=== PATIENT | female | born 2000 | race Caucasian/White ===

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

== ENCOUNTER 2021-02-05 17:45 | Emergency (ER) | payer OTHER, SELFPAY ==
[2021-02-05 17:48] VITALS: BP 127/68; PULSE 74; RESP 16; TEMP 36.9; O2SAT 100
--- NOTE | 2021-02-05 18:24 | ED.SKABFB ---
HPI - Skin/Abscess/Foreign Bdy General Chief complaint: Skin/Abscess/Foreign Body Stated complaint: rash Time Seen by Provider: 02/05/21 18:10 Source: patient and RN notes reviewed Mode of arrival: ambulatory Limitations: no limitations History of Present Illness HPI narrative: 21-year-old female presents concern for 2-day history of generalized pink rash. Reports the rash is burning. Denies current itching. She reports she began having a bad sore throat this morning. She denies any lip swelling, tongue swelling, trouble breathing, fever, vomiting, diarrhea. Denies any new medications, personal care products, home care products. Reports history of rash after sun exposure. Reports she was recently in the sun. Denies sunburn. MD complaint: rash and other (Sore throat) Related Data Home Medications Medication Instructions Recorded Confirmed methylphenidate HCl 02/05/21 methylphenidate HCl mg PO 02/05/21 norgestimate-ethinyl estradiol tablet 02/05/21 [[place]-[facility]] norgestimate-ethinyl estradiol tablet 02/05/21 [Sprintec (28)] Allergies Allergy/AdvReac Type Severity Reaction Status Date / Time No Known Drug Allergies Allergy Unknown Verified 09/28/15 09:53 Review of Systems Review of Systems: CONSTITUTIONAL: Denies malaise, chills, sweats, or fever. EYES: Denies visual changes, redness, or discharge. ENT: Denies rhinorrhea, congestion, sinus pain, otalgia, swollen lips, swollen tongue. Reports sore throat. CARDIOVASCULAR: Denies chest pain, palpitations, or edema. RESPIRATORY: Denies cough or dyspnea. GASTROINTESTINAL: Denies abdominal pain, nausea, vomiting SKIN: Reports generalized rash MUSCULOSKELETAL: Denies myalgia. NEUROLOGIC: Denies headache. All systems reviewed & are unremarkable except as noted in HPI and below PMFSH Comments At time of signature, agree with nursing past medical, surgical, social and family history. There is no relevant family history pertinent to the presenting complaint Exam Narrative: GENERAL: Well-appearing, well-nourished, and in no acute distress. HEAD: Normocephalic, atraumatic. EYES: PERRLA, conjunctivae clear ENT: Mucous membranes moist. Oropharynx without edema, erythema or lesions. NECK: Supple. No lymphadenopathy CHEST: Clear to auscultation. No respiratory distress. HEART: Regular rate and rhythm. SKIN: Warm, dry. Generalized pink papular rash noted to the torso, bilateral arms and legs NEURO: Alert and oriented x3. PSYCH: Normal mood and affect Course Course Emergency Course: Patient is aware of diagnosis, understands and agrees to treatment plan. Anticipatory guidance given. Patient agrees to follow-up as directed and is aware of reasons to seek care at the emergency department. Portions of this record may have been created with voice recognition software Vital Signs Vital signs: Vital Signs Temperature 98.4 F 02/05/21 17:48 Pulse Rate 74 02/05/21 17:48 Respiratory Rate 16 02/05/21 17:48 Blood Pressure 127/68 02/05/21 17:48 Pulse Oximetry 100 02/05/21 17:48 Temperature 98.4 F 02/05/21 17:48 Pulse Rate 74 02/05/21 17:48 Respiratory Rate 16 02/05/21 17:48 Blood Pressure 127/68 02/05/21 17:48 Pulse Oximetry 100 02/05/21 17:48 Reviewed. MDM - Skin/Abscess/Foreign Bdy MDM Narrative Medical decision making narrative: Does not appear at this time to be erythema multiforme, bullous, SJS, TEN; no evidence at this time to suggest RMSF, endocarditis or Lyme disease; patient looks well, nontoxic and is tolerating oral intake; no neurologic signs or symptoms; no headache, photophobia or neck pain; afebrile; appropriate for initial outpatient treatment; discussed the importance of follow-up, patient agrees; question, viral exanthema, contact dermatitis, allergic dermatitis, eczema, urticaria, strep throat. No soft palate or uvula edema, no tongue, lip edema or other mucosal involvement, no respiratory compromise, no stridor
== END 2021-02-05 18:32 | disposition home or self-care (01) ==
PROVIDERS: Emergency Provider Nurse Practitioner; PCP Family Medicine
DX: R21 Rash and other nonspecific skin eruption (principal)
CPT/HCPCS: 87081; 87880; 99213; G0463

== ENCOUNTER 2022-01-13 14:21 | Emergency (ER) | payer OTHER, SELFPAY ==
[2022-01-13 14:32] VITALS: BP 126/85; PULSE 77; RESP 16; TEMP 37.4; O2SAT 100
--- NOTE | 2022-01-13 14:49 | ED.ABDPAIN ---
HPI - Abdominal Pain General Chief Complaint: Abdominal Pain Stated Complaint: right side pain Time Seen by Provider: 01/13/22 14:34 Source: patient and family Mode of arrival: ambulatory Limitations: no limitations History of Present Illness HPI narrative: Patient presents today complaining of right lower quadrant abdominal pain x3 days. Denies any additional symptoms to include nausea, vomiting, diarrhea, constipation, urinary symptoms, fever. She currently rates her pain 6/10 and has been taking Tylenol and Midol without relief. States she has been lying in a position with a heating pad for the last 3 days due to severe pain. States she took a Plan B pill on November 20, but has also taken several tests to confirm that she is not . Her last test was yesterday and it was negative. She did have a period in November, but has not yet had a period in December. States she believes her right ovary is what is causing her pain as she does have a history of ovarian cysts. She does still have her appendix. Related Data Home Medications Medication Instructions Recorded Confirmed methylphenidate HCl 10 mg tablet 02/05/21 methylphenidate HCl 20 mg biphasic mg PO 02/05/21 30-70 capsule,extended release norgestimate 0.25 mg-ethinyl tablet 02/05/21 estradiol 35 mcg tablet ([place]-[facility]) norgestimate 0.25 mg-ethinyl tablet 02/05/21 estradiol 35 mcg tablet (Sprintec (28)) Allergies Allergy/AdvReac Type Severity Reaction Status Date / Time No Known Drug Allergies Allergy Unknown Verified 09/28/15 09:53 Review of Systems Review of Systems: CONSTITUTIONAL: Denies body aches, fever, chills, or sweats. EYES: Denies visual changes, redness, or discharge. ENT: Denies rhinorrhea, congestion, sore throat, or otalgia. CARDIOVASCULAR: Denies chest pain, palpitations, or edema. RESPIRATORY: Denies cough or dyspnea. GASTROINTESTINAL: Denies nausea, vomiting, or diarrhea.+ Abdominal pain GENITOURINARY: Denies dysuria or hematuria. SKIN: Denies rash, itching, or wounds. MUSCULOSKELETAL: Denies back pain, joint pain, or myalgia. NEUROLOGIC: Denies headache, numbness, tingling, or weakness. PSYCH: Denies depression or anxiety. PMFSH Comments At time of signature, I have reviewed and agree with nursing past medical, surgical, social and family history unless otherwise noted. Please see nursing chart for further information. There is no relevant family history pertinent to the presenting complaint Exam Narrative: GENERAL: Well-appearing, well-nourished, and in no acute distress. HEAD: Normocephalic, atraumatic. EYES: EOMI. No redness or drainage. Conjunctivae normal. ENT: Mucous membranes pink and moist. NECK: Normal AROM. CHEST: No respiratory distress. Clear to auscultation. HEART: Regular rate and rhythm. No murmur appreciated. ABDOMEN: Soft, nondistended, normal active bowel sounds.+ Right lower quadrant abdominal tenderness with guarding.-Rebound EXTREMITIES: Normal range of motion. No edema. SKIN: Warm, dry, no rash. Capillary refill normal. Normal skin turgor. NEURO: No focal deficits. Alert and oriented x3. Gait steady. PSYCH: Normal affect. No signs of depression or anxiety. Course Course Level of Care: Express Care Visit Vital Signs Vital signs: Vital Signs Temperature 99.3 F 01/13/22 14:32 Pulse Rate 77 01/13/22 14:32 Respiratory Rate 16 01/13/22 14:32 Blood Pressure 126/85 01/13/22 14:32 Pulse Oximetry 100 01/13/22 14:32 Oxygen Delivery Room Air 01/13/22 14:32 Temperature 99.3 F 01/13/22 14:32 Pulse Rate 77 01/13/22 14:32 Respiratory Rate 16 01/13/22 14:32 Blood Pressure 126/85 01/13/22 14:32 Pulse Oximetry 100 01/13/22 14:32 Oxygen Delivery Room Air 01/13/22 14:32 Reviewed Transfer Transfered to: [place] Transportation: Other (Private vehicle) Transfer rationale: Higher level of care, right lower quadrant abdominal loki
== END 2022-01-13 14:51 | disposition short-term general hospital (02) ==
PROVIDERS: Emergency Provider Nurse Practitioner; PCP Family Medicine
DX: R10.31 Right lower quadrant pain (principal); F90.9 Attention-deficit hyperactivity disorder, unspecified type
CPT/HCPCS: 99212; G0463

== ENCOUNTER 2022-01-13 15:17 | Emergency (ER) | payer OTHER, SELFPAY ==
--- NOTE | ~2022-01-13 | CT_ITS ---
EXAMINATION: CT abdomen pelvis w con DATE: 01/13/2022 17:09 INDICATION: RLQ abd pain TECHNIQUE: Computed tomography (CT) of the abdomen and pelvis was performed with 100 mL Omnipaque-300 intravenous contrast. Automated exposure control and iterative reconstruction technique were employe d. The dose-length product was 446.18 mGy-cm. COMPARISON: 06/13/2012. FINDINGS: Lower thorax: Unremarkable Liver: Normal. Biliary/Gallbladder: Gallbladder is normal. No bile duct dilation. Pancreas: No mass or duct dilation. Spleen: Normal. Adrenals:1 cm enhancing nodularity in the superior aspect of the left adrenal. Normal right adrenal. Kidneys: No mass, stone, or hydronephrosis. GI tract: No small or large bowel dilation. Normal appendix. Mesentery/Peritoneum: No ascites, mass, or free air. Retroperitoneum: No mass. Pelvis: Mild bladder wall thickening, given the degree of distention, otherwise the pelvic organs are within normal limits. Soft Tissues: Soft tissues and body wall unremarkable. Bones: No acute osseous finding. IMPRESSION: No CT evidence for appendicitis. Mild bladder wall thickening as can be seen with cystitis in the ricardo ropriate clinical context. No other acute abdominopelvic process detected. Possible 1 cm left adrenal nodule, recommend outpatient MR abdomen with adrenal mass protocol for further evaluation. Reviewed, dictated and finalized at location K. IMPRESSION: No CT evidence for appendicitis. Mild bladder wall thickening as can be seen wi th cystitis in the appropriate clinical context. No other acute abdominopelvic process detected. Possible 1 cm left adrenal nodule, recommend outpatient MR ab domen with adrenal mass protocol for further evaluation.
--- NOTE | ~2022-01-13 | US_ITS ---
EXAMINATION: US pelvic complete w TV DATE: 01/13/2022 19:45 INDICATION: RLQ abd pain TECHNIQUE: Multiple transabdominal and endovaginal sonographic images of the pelvis were obtained. COMPARISON: CT abd/pel, same date. FINDINGS: Uterus: 7.0 x 3.4 x 4.3 cm. Homogenous parenchyma. Endometrial complex measures 0.7 cm. Right Ovary: 4.2 x 1.9 x 2.0 cm. Vascular flow is present. 1.3 cm simple cyst/follicle. Left Ovary: 4.8 x 2.0 x 2.1 cm. Vascular flow is present. There is small volume free fluid in the pelvis, within physiologic range. IMPRESSION: 1. Unremarkable pelvic sonogram findings. Reviewed, dictated and finalized at location K.
[2022-01-13 15:21] VITALS: BP 120/71; PULSE 63; RESP 14; TEMP 36.5; O2SAT 100
[2022-01-13 15:39] LABS: Basophils Percent Auto 0.3 % (0.2-1.2); Eosinophils Percent Auto 0.3 % (0-4.4); Hematocrit 42.9 % (37.0-47.0); Hemoglobin 13.7 g/dL (12.0-15.0); Immature Granulocyte Absolute 0.02 K/mm3 (0.00-0.031); Immature Granulocyte Percent A 0.3 % (0-0.5); Lymphocytes Absolute Auto 2.12 K/mm3 (0.9-3.2); Lymphocytes Percent Auto 30.1 % (18.3-44.2); Mean Corpuscular HGB Conc 31.9 g/dl (32-36); Mean Corpuscular Hemoglobin 30.2 pg (26-34); Mean Corpuscular Volume 94.5 fl (80-100); Mean Platelet Volume 12.2 fl (7.4-10.4); Monocytes Absolute Auto 0.4 K/mm3 (0.1-0.6); Monocytes Percent Auto 5.4 % (2.6-8.5); Neutrophils Absolute Auto 4.5 K/mm3 (1.3-6.7); Neutrophils Percent Auto 63.6 % (45.5-73.1); Platelet Count Result 150 k/mm3 (150-375); Red Blood Count 4.54 M/mm3 (4.2-5.4); Red Cell Distribution Width 12.6 % (11.5-14.5); White Blood Count 7.1 K/mm3 (4.5-10.0)
[2022-01-13 15:50] LABS: Alanine Aminotransferase 23 U/L (6-35); Alkaline Phosphatase 59 U/L (38-126); Anion Gap 9 mmol/L (8-16); Aspartate Amino Transferase 24 U/L (14-36); Bilirubin,Total 0.3 mg/dL (0.2-1.3); Blood Urea Nitrogen 10 mg/dL (7-17); Calcium 9.9 mg/dL (8.4-10.2); Carbon Dioxide 29 mmol/L (22-30); Chloride 102 mmol/L (98-107); Estimated CRCL calculation 75 ml/min; Estimated Glomerular Filt Rate > 60; Glucose 91 mg/dL (65-110); Lipase 34 U/L (23-300); Potassium 3.9 mmol/L (3.4-5.0); Sodium 140 mmol/L (137-145)
[2022-01-13 16:01] LABS: Appearance Urine Clear (Clear); Bilirubin Urine Negative (Negative); Blood Urine Negative (Negative); Color Urine Yellow (Yellow); Glucose Urine UA Negative (Negative); Ketones Urine Negative (Negative); Leukocyte Esterase Ur Negative LEU/UL (Negative); Nitrate Urine Negative (Negative); Protein Urine Negative (Negative); Urobilinogen Urine 0.2 mg/dL (<2.0)
[2022-01-13 16:03] LABS: Add Urine Microscopic? NO
[2022-01-13] MEDS: KETOROLAC 30 MG/ML VIAL (*BKC) IV PUSH (16:40)
[2022-01-13] MEDS: SODIUM CHLORIDE 0.9% IV 1,000 ML 999 ML IV CONT (16:40)
[2022-01-13] MEDS: ONDANSETRON INJ 4 MG/2 ML VIAL IV PUSH (16:41)
--- NOTE | 2022-01-13 17:51 | ED.ABDPAIN ---
HPI - Abdominal Pain General Chief Complaint: Abdominal Pain <Sanjay Calle DO - Last Filed: 01/14/22 08:13> Stated Complaint: Abdominal Pain <Sanjay Calle DO - Last Filed: 01/14/22 08:13> Time Seen by Provider: 01/13/22 15:38 <Sanjay Calle DO - Last Filed: 01/14/22 08:13> Source: RN notes reviewed <Sanjay Calle DO - Last Filed: 01/14/22 08:13> History of Present Illness HPI narrative: Patient presents emergency department from home for abdominal pain. Patient states pain is located in the right lower quadrant does not radiate described as sharp and stabbing. Patient states the pain began 3 days ago. Is associated with nausea and vomiting she denies any fevers or chills chest pain shortness of breath diarrhea or any other symptoms states she did has been taking Tylenol for the pain with minimal relief the patient gone to urgent care and was referred to the ER for rule out appendicitis <Sanjay Calle DO Last Filed: 01/14/22 08:13> Related Data Home Medications: Home Medications Medication Instructions Recorded Confirmed methylphenidate HCl 20 mg biphasic 20 mg PO DAILY 02/05/21 01/13/22 30-70 capsule,extended release <Sanjay Calle DO - Last Filed: 01/14/22 08:13> Allergies/Adverse Reactions: Allergies Allergy/AdvReac Type Severity Reaction Status Date / Time No Known Drug Allergies Allergy Unknown Unknown Verified 01/13/22 15:23 <Sanjay Calle DO - Last Filed: 01/14/22 08:13> Review of Systems Review of Systems: Gen.: Denies fevers or chills ENT: Denies congestion Respiratory: Denies shortness of breath or cough CV: Denies chest pain or palpitations GI: See HPI Musculoskeletal: Denies back pain or muscle pain Neuro: Denies numbness, tingling, weakness or focal weakness Skin: Denies rash Except as documented, all other systems reviewed and negative <Sanjay Calle DO - Last Filed: 01/14/22 08:13> [facility] Past Medical History Medical History: Medical History (Updated 01/14/22 @ 00:00 by Background Daemon) Patient denies significant medical history <Sanjay Calle DO - Last Filed: 01/14/22 08:13> Social History Social History: Social History (Updated 01/13/22 @ 17:52 by Sanjay Calle DO) Tobacco type: e-cigarettes/vaping <Sanjay Calle DO - Last Filed: 01/14/22 08:13> Exam Narrative: APPEARANCE: No acute distress, nontoxic, resting in bed HEENT: Normocephalic, atraumatic, OMM RESPIRATORY: No respiratory distress, clear to auscultation bilaterally with no rhonchi wheezing or rales CARDIOVASCULAR: RRR s murmur ABDOMINAL: Soft nondistended tender palpation right lower quadrant no tenderness right upper quadrant, left upper quadrant left lower quadrant no rebound or guarding Pelvic: Normal external exam, small amount of white discharge in vaginal canal cervix closed, right adnexal tenderness no left adnexal tenderness no cervical motion tenderness MUSCULOSKELETAl: Moves all extremities. No clubbing, cyanosis or edema. NEURO: Awake and alert. Following commands, speech normal, no focal deficits SKIN:: Warm, dry. Normal Color PSYCHIATRIC: Normal affect/mood <Sanjay Calle DO - Last Filed: 01/14/22 08:13> Course Reevaluation(s) Reevaluation #1: I discussed with patient US unremarkable other than simple right ovary cyst. No torsion. She denies any other questions or concerns. Trichomonas negative as well. <Vy Ricardo MD - Last Filed: 01/14/22 03:32> Date: 01/13/22 <Vy Ricardo MD - Last Filed: 01/14/22 03:32> Time: 20:20 <Vy Ricardo MD - Last Filed: 01/14/22 03:32> Vital Signs Vital signs: Vital Signs Temperature 97.7 F 01/13/22 15:21 Pulse Rate 63 01/13/22 15:21 Respiratory Rate 14 01/13/22 15:21 Blood Pressure 120/71 01/13/22 15:21 Pulse Oximetry 100 01/13/22 15:21 Oxygen Delivery Room Air 01/13/22 15:21 Temp
[2022-01-13 20:26] VITALS: BP 130/74; PULSE 86; RESP 16; O2SAT 99
== END 2022-01-13 20:27 | disposition home or self-care (01) ==
PROVIDERS: Emergency Provider Emergency Medicine; PCP Family Medicine
DX: R10.31 Right lower quadrant pain (principal); F17.290 Nicotine dependence, other tobacco product, uncomplicated
CPT/HCPCS: 36415; 74177; 76830; 76856; 80053; 81003; 81025; 83690; 85025; 87070; 87491; 87591; 87808; 96361; 96374; 96375; 99284; J1885; J2405; J7030; Q9967

== ENCOUNTER 2023-06-10 12:55 | Emergency (ER) | payer OTHER, SELFPAY ==
--- NOTE | ~2023-06-10 | CT_ITS ---
EXAMINATION: CT abdomen pelvis w con DATE: 06/10/2023 15:50 INDICATION: Left upper quadrant abdominal pain. Constipation. TECHNIQUE: Computed tomography (CT) of the abdomen and pelvis was performed with 100 mL Omnipaque 350 intravenous contrast. Automated exposure control and iterative reconstruction technique were employe d. The dose-length product was 750.93 mGy-cm. COMPARISON: CT abdomen and pelvis 01/13/2022 FINDINGS: The visualized portions of the lung bases demonstrate mild atelectasis in the right. No ple ural effusion. The heart size is normal. No pericardial effusion. The liver, gallbladder, spleen, [place], right adrenal gland, and right kidney are normal. Again seen is a 10 mm mass in left adrenal g land measuring soft tissue attenuation, likely an adenoma. There is a 2 mm stone in left kidney. Ther e are no dilated loops of bowel. The appendix is normal. There are no dilated loops of bowel. There i s physiologic fluid in the pelvis. There is a 2.4 cm corpus luteum cyst in left ovary. There is mild lumbar spondylosis. IMPRESSION: 1. No etiology for the patient's symptoms. Reviewed, dictated and finalized at location E. [employer]
[2023-06-10 12:56] VITALS: BP 147/82; PULSE 70; RESP 16; TEMP 36.4; O2SAT 100
[2023-06-10 14:09] LABS: Appearance Urine Clear (Clear); Bacteria Urine 1+ /hpf; Bilirubin Urine Negative (Negative); Blood Urine Negative (Negative); Color Urine Yellow (Yellow); Glucose Urine UA Negative (Negative); Ketones Urine Negative (Negative); Leukocyte Esterase Ur Trace LEU/UL (Negative); Nitrate Urine Negative (Negative); Non Pathogenic Casts 0-2; Protein Urine Negative (Negative); RBC Urine 0-2 /hpf (0-2); Specific Grav Ur 1.006 (1.001-1.035); Squamous Epithelial Cell Urine Moderate /hpf (Few); Urobilinogen Urine 0.2 mg/dL (<2.0); pH Urine 6.5 (5.0-9.0)
[2023-06-10 14:10] LABS: Add Urine Microscopic? YES
[2023-06-10 14:18] VITALS: BP 130/88; PULSE 69; RESP 18; TEMP 36.7; O2SAT 100
[2023-06-10 14:19] LABS: Basophils Percent Auto 0.2 % (0.2-1.2); Eosinophils Absolute Auto 0.1 K/mm3 (0-0.3); Eosinophils Percent Auto 1.1 % (0-4.4); Hematocrit 42.7 % (37.0-47.0); Hemoglobin 13.7 g/dL (12.0-15.0); Immature Granulocyte Absolute 0.01 K/mm3 (0.00-0.031); Immature Granulocyte Percent A 0.1 % (0-0.5); Lymphocytes Absolute Auto 3.03 K/mm3 (0.9-3.2); Lymphocytes Percent Auto 37.7 % (18.3-44.2); Mean Corpuscular HGB Conc 32.1 g/dl (32-36); Mean Corpuscular Hemoglobin 29.7 pg (26-34); Mean Corpuscular Volume 92.4 fl (80-100); Mean Platelet Volume 12.5 fl (7.4-10.4); Monocytes Absolute Auto 0.5 K/mm3 (0.1-0.6); Monocytes Percent Auto 6.6 % (2.6-8.5); Neutrophils Absolute Auto 4.4 K/mm3 (1.3-6.7); Neutrophils Percent Auto 54.3 % (45.5-73.1); Platelet Count Result 166 k/mm3 (150-375); Red Blood Count 4.62 M/mm3 (4.2-5.4); Red Cell Distribution Width 12.5 % (11.5-14.5)
[2023-06-10 14:29] LABS: INR 0.9
[2023-06-10 14:30] LABS: Partial Thromboplastin Time 28.9 SECONDS (22.3-36.8)
[2023-06-10 14:31] LABS: Alanine Aminotransferase 22 U/L (6-35); Albumin Level 4.9 g/dL (3.5-5.1); Alkaline Phosphatase 76 U/L (38-126); Anion Gap 10 mmol/L (8-16); Aspartate Amino Transferase 26 U/L (14-36); Bilirubin,Total 0.4 mg/dL (0.2-1.3); Blood Urea Nitrogen 14 mg/dL (7-17); Calcium 9.8 mg/dL (8.4-10.2); Carbon Dioxide 26 mmol/L (22-30); Chloride 104 mmol/L (98-107); Estimated CRCL calculation 99 ml/min; Estimated Glomerular Filt Rate > 60; Glucose 95 mg/dL (65-110); Lipase 63 U/L (23-300); Potassium 4.7 mmol/L (3.4-5.0); Sodium 140 mmol/L (137-145)
--- NOTE | 2023-06-10 15:01 | ED.ABDPAIN ---
HPI - Abdominal Pain General Chief Complaint: Abdominal Pain Stated Complaint: abd pain Time Seen by Provider: 06/10/23 13:41 History of Present Illness HPI narrative: 23-year-old female presenting to the emergency department for evaluation of constipation. Patient does have history of IBS and states she has had lifelong issues with constipation. Patient reports that the constipation has been worsened since May 27. Patient has been taking stool softeners Mag citrate and laxatives without significant improvement. Patient previously used to have follow-up with Dr. Gottlieb Related Data Home Medications Medication Instructions Recorded Confirmed methylphenidate HCl 20 mg biphasic 20 mg PO DAILY 02/05/21 01/13/22 30-70 capsule,extended release Allergies Allergy/AdvReac Type Severity Reaction Status Date / Time No Known Drug Allergies Allergy Unknown Unknown Verified 01/13/22 15:23 Review of Systems Review of Systems: All systems reviewed & are unremarkable except as noted in HPI and below PMFSH Past Medical History Medical History (Updated 06/11/23 @ 00:00 by Arnav Worthy) Patient denies significant medical history Social History Social History (Updated 01/13/22 @ 17:52 by Sanjay Calle DO) Tobacco type: e-cigarettes/vaping Exam Narrative: APPEARANCE: Well appearing, no pain, no distress, well-nourished. HEAD: normocephalic, atraumatic. EYES: PERRLA/EOMI, conjunctivae clear. NOSE: Normal no drainage EARS:TMS clear with good light reflex. THROAT: Pharynx clear, no exudate. NECK: Supple. No adenopathy, no masses. RESPIRATORY: Airway patent, respirations nonlabored. Clear to auscultation bilaterally, no rales, rhonchi, wheezing. CARDIOVASCULAR: Regular rate and rhythm without murmurs rubs or gallops. ABDOMINAL: Soft, nontender, nondistended, normal bowel sounds Rectal exam: Old non thrombosed hemorrhoids, no internal hemorrhoids palpated, Hemoccult negative MUSCULOSKELETAL: Moves all extremities. Strength/ROM intact, No edema, No calf tenderness. NEURO: Alert. Cranial nerves II through XII intact. grossly intact SKIN: Warm, dry. Normal Color Course Course Emergency Course: A 23-year-old female presenting to the emergency department for evaluation of constipation. Patient is afebrile with no leukocytosis and a stable hemoglobin of 13.7. Patient has a normal CMP. Patient had no large stool ball on the digital rectal exam. UA does have high white blood cells and high bacteria but patient declines having any urinary symptoms. Urine culture is pending. Patient was advised to has close follow-up with Gastroenterology. Vital Signs Vital signs: Vital Signs Temperature 97.6 F 06/10/23 12:56 Pulse Rate 70 06/10/23 12:56 Respiratory Rate 16 06/10/23 12:56 Blood Pressure 147/82 H 06/10/23 12:56 Pulse Oximetry 100 06/10/23 12:56 Oxygen Delivery Room Air 06/10/23 12:56 Temperature 98.5 F 06/10/23 16:41 Pulse Rate 60 06/10/23 16:41 Respiratory Rate 18 06/10/23 16:41 Blood Pressure 110/62 06/10/23 16:41 Pulse Oximetry 98 06/10/23 16:41 Oxygen Delivery Room Air 06/10/23 12:56 MDM - Abdominal Pain Differential Diagnosis Differential diagnosis: Likely abdominal pain, acute appendicitis, constipation, gastroenteritis, pancreatitis and small bowel obstruction Lab Data Attestation: I reviewed the patient's lab results. 06/10/23 14:10 06/10/23 14:10 Labs: Lab Results 06/10/23 06/10/23 Range/Units 13:59 14:10 WBC 8.0 (4.5-10.0) K/mm3 RBC 4.62 (4.2-5.4) M/mm3 Hgb 13.7 (12.0-15.0) g/dL Hct 42.7 (37.0-47.0) % MCV 92.4 (80-100) fl MCH 29.7 (26-34) pg MCHC 32.1 (32-36) g/dl RDW 12.5 (11.5-14.5) % Plt Count 166 (150-375) k/mm3 MPV 12.5 H (7.4-10.4) fl Immature Gran % (Auto) 0.1 (0-0.5) % Neut % (Auto) 54.3 (45.5-73.1) % Lymph % (Auto) 37.7 (18.3-44.2) % White
[2023-06-10 16:41] VITALS: BP 110/62; PULSE 60; RESP 18; TEMP 36.9; O2SAT 98
== END 2023-06-10 17:14 | disposition home or self-care (01) ==
PROVIDERS: Emergency Provider Emergency Medicine; PCP Family Medicine
DX: K58.1 Irritable bowel syndrome with constipation (principal); R10.9 Unspecified abdominal pain; F17.210 Nicotine dependence, cigarettes, uncomplicated
CPT/HCPCS: 36415; 74177; 80053; 81001; 81025; 83605; 83690; 85025; 85610; 85730; 87086; 87088; 99284; Q9967